=== PATIENT | female | born 1990 | race Caucasian/White ===

== ENCOUNTER 2018-12-29 14:01 | Emergency (ER) | payer SELFPAY ==
[~2018-12-29] VITALS: Ht 172.7 cm; Wt 102.1 kg
[2018-12-29 14:10] VITALS: BP 111/65
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
[2018-12-29] MEDS ORDERED: IBUPROFEN 600 MG TABLET. PO ONE (14:30)
[2018-12-29] MEDS ORDERED: traMADol 50 MG TABLET PO ONE (14:30)
--- NOTE | 2018-12-29 15:08 | RAD ---
ANKLE LEFT 3V History: Pain and swelling. Injury. Technique: 3 views left ankle. Comparison: None. Findings: Normal alignment. Symmetric ankle mortise. No fracture. Lateral ankle soft tissue swelling. Impression: 1. No acute osseous abnormality. 2. Lateral ankle soft tissue swelling. Electronically signed by: Ryne Lee DO (12/29/2018 3:05 PM) [facility]
[2018-12-29] MEDS ORDERED: TRAM50TA PO (15:21)
[2018-12-29] MEDS ORDERED: MELO7.5T29 PO (15:21)
== END 2018-12-29 15:40 | disposition home or self-care (01) ==
LOC: EDBD 14:01 → ER 14:01 → EEVIPCON 14:01 → ER 15:40
DX: S93.402A Sprain of unspecified ligament of left ankle, initial encounter (principal); F17.210 Nicotine dependence, cigarettes, uncomplicated; W22.8XXA Striking against or struck by other objects, initial encounter; Y93.89 Activity, other specified; Y92.89 Other specified places as the place of occurrence of the external cause; Y99.8 Other external cause status
CPT/HCPCS: 29515; 73610; 99284